=== PATIENT | female | born 1995 | race Caucasian/White ===

== ENCOUNTER 2022-10-10 13:59 | Inpatient (IN) | payer OTHER ==
[~2022-10-10] VITALS: Ht 172.7 cm; Wt 75.9 kg
[2022-10-15] VITALS (40 sets, daily range): BP systolic 97–142; BP diastolic 56–92; PULSE 63–136; TEMP 97.8–98.4
[2022-10-15] MEDS ORDERED: QUALITY CHOICE1 TA7 (07:51)
[2022-10-15 08:09] LABS: BASO % 0.3 % (0.0-2.0); EOS # 0.1 K/mm3 (0.0-0.7); EOS % 1.4 % (0.0-4.0); GRAN # 5.3 K/mm3 (1.4-6.5); GRAN % 57.4 % (42.2-75.2); HEMATOCRIT 38.4 % (37.0-47.0); HEMOGLOBIN 12.7 g/dl (12.5-16.0); LYMPH % 32.3 % (20.0-51.0); MEAN CELL VOLUME 87 fl (80.0-100.0); MEAN CORPUSCULAR HEMOGLOBIN 29 pg (27-31); MEAN CORPUSCULAR HGB CONC 33 g/dl (33.0-37.0); MEAN PLATELET VOLUME 11.3 fl (7.4-10.4); MONO # 0.8 K/mm3 (0.1-0.6); MONO % 8.2 % (1.7-9.3); PLATELET COUNT 238 K/mm3 (130-400); RED BLOOD COUNT 4.44 M/mm3 (4.10-5.30); REDCELL DISTRIBUTION WIDTH-CV 13.6 % (11.5-14.5)
[2022-10-15] MEDS ORDERED: MOTRIN 800800 MG/TAB PO (18:30)
[2022-10-16 01:00] VITALS: BP 110/68; PULSE 72; TEMP 98.1
[2022-10-16 06:37] LABS: HEMATOCRIT 31.1 % (37.0-47.0); HEMOGLOBIN 10.6 g/dl (12.5-16.0)
[2022-10-16 08:20] VITALS: BP 104/75; PULSE 68; TEMP 97.5
[2022-10-16 11:55] VITALS: BP 125/80; PULSE 92
[2022-10-16 20:50] VITALS: BP 113/80; PULSE 68; TEMP 97.7
[2022-10-17 08:00] VITALS: BP 121/80; PULSE 74; TEMP 98
== END 2022-10-17 09:40 | disposition home or self-care (01) | DRG 807 ==
LOC: OB 10-15 06:33 → LDR 10-15 06:33 → OB 10-15 09:23
PROVIDERS: ADMIT Obstetrics & Gynecology
PROC: 10E0XZZ Delivery of Products of Conception, External Approach (ICD-10-PCS; principal; 2022-10-15)
PROC: 0KQM0ZZ Repair Perineum Muscle, Open Approach (ICD-10-PCS; 2022-10-15)
PROC: 10907ZC Drainage of Amniotic Fluid, Therapeutic from Products of Conception, Via Natural or Artificial Opening (ICD-10-PCS; 2022-10-15)
PROC: 3E033VJ Introduction of Other Hormone into Peripheral Vein, Percutaneous Approach (ICD-10-PCS; 2022-10-15)
DX: O48.0 Post-term pregnancy (principal); Z37.0 Single live birth; O70.1 Second degree perineal laceration during delivery; O99.62 Diseases of the digestive system complicating childbirth; K42.9 Umbilical hernia without obstruction or gangrene; O99.344 Other mental disorders complicating childbirth; F41.9 Anxiety disorder, unspecified; Z3A.40 40 weeks gestation of pregnancy; Z79.82 Long term (current) use of aspirin
CPT/HCPCS: J2405; J2590; J2795; J7120

== ENCOUNTER 2024-07-01 09:29 | Outpatient (CLI) | payer OTHER ==
[~2024-07-01] VITALS: Ht 172.7 cm; Wt 76.8 kg
[~2024-07-01 09:29] MED LIST changes: -ASPIRIN 81M81 MG/TA2 PO; -LR 1,000 ML IV PRN
--- NOTE | 2024-07-01 09:35 | NUR ---
PATIENT AMBULATORY TO UNIT AND ORIENTED TO LABOR ROOM 3. PATIENT ASSISTED INTO A GOWN AND ASSISTED INTO BED. PATIENT REPORTS LEFT LOWER QUADRANT PAIN THAT IS MAKING IT DIFFICULT TO WALK, CONSTANT WHEN SHE IS MOVING AND IS COMING AND GOING. PATIENT DENIES LEAKING OF FLUID AND VAGINAL BLEEDING AND REPORTS GOOD MOVEMENT. EFM AND TOCO PLACED AND TRACING. ASSESSMENTS COMPLETED.
[2024-07-01 10:00] VITALS: BP 132/92; PULSE 86
--- NOTE | 2024-07-01 10:00 | NUR ---
IN PATIENTS ROOM, [facility] REPORT GIVEN. LABOR CHECK PLAN OF CARE, PATIENT AGREES.
[2024-07-01] MEDS ORDERED: ASPIRIN 81M81 MG/TA2 PO (10:04)
[2024-07-01 10:30] VITALS: BP 122/84; PULSE 67; TEMP 98.4
[2024-07-01] MEDS ORDERED: LR 1,000 ML IV PRN (11:00)
[2024-07-01 11:05] VITALS: BP 125/83; PULSE 80
--- NOTE | 2024-07-01 11:22 | NUR ---
DISCHARGE INSTRUCTIUONS REVIEWED WITH PAITENT AND SPOUSE, PATIENT VERBALIZES UNDERSTANDING. PATIENT AMBULATORY OFF UNIT WITH SPOUSE IN [facility] OCND[facility].
== END 2024-07-01 11:22 | disposition home or self-care (01) ==
LOC: LDRO 09:29
DX: O26.893 Other specified pregnancy related conditions, third trimester (principal); R10.32 Left lower quadrant pain; Z3A.34 34 weeks gestation of pregnancy

== ENCOUNTER → 2024-07-01 | Outpatient (CLI) | payer OTHER ==
[~2024-07-01] VITALS: Ht 167.6 cm; Wt 76.8 kg
[~2024-07-01] MED LIST: ASPIRIN 81M81 MG/TA2 PO; LR 1,000 ML IV PRN; MOTRIN 800800 MG/TAB PO; QUALITY CHOICE1 TA7
--- NOTE | 2024-07-01 18:50 | NUR ---
G4L2 at 34 weeks and 1 day arrives to unit with complaint of increasing LLQ pain and contraction pain. Pt was seen earlier today with the same complaint and patient states the pain has gotten worse. Pt appears to be uncomfortable but does not appear to be in labor. Pt states LLQ pain is pretty constant but sometimes gets worse with contractions. Pt reports good movement, denies vaginal bleeding or loss of fluid. Clean gown on. Pt oriented to room, call light within reach, bed in low and locked position. Admission assessment started. Vitals obtained. SVE 08/27/-2, membranes intact, vertex position.
[2024-07-01 19:00] VITALS: BP 118/73; PULSE 78; TEMP 98.3
--- NOTE | 2024-07-01 19:30 | NUR ---
18G IV started in left forearm with 1 attempt. Lactated ringers bolus infusing to gravity. Dr. Lehman at bedside to review plan of care with patient. Pt wants to think about her options and wait until fluids are done and cervical check is complete.
--- NOTE | 2024-07-01 19:45 | NUR ---
Seminary shows contractions every 2-4 minutes. Pt reports she does not feel all of them but occassionaly has a strong one that she has to focus and breath through.
--- NOTE | 2024-07-01 20:20 | NUR ---
Fluid bolus complete. Pt reports feeling a little bit better. Pt would like to be discharged home and will try benadryl and tylenol at home and continue to monitor pain.
[2024-07-01 20:26] LABS: COLLECTION METHOD CLEAN CATCH
[2024-07-01 20:30] LABS: PH 6.5 (5.0-8.5); URINE APPEARANCE CLEAR (CLEAR/HAZY); URINE BLOOD NEGATIVE (NEGATIVE); URINE COLOR YELLOW (YELLOW); URINE GLUCOSE NEGATIVE (NEGATIVE); URINE KETONE NEGATIVE (NEGATIVE); URINE NITRATE NEGATIVE (NEGATIVE); URINE PROTEIN(semi-quant) NEGATIVE (NEGATIVE); URINE UROBILINOGEN 0.2 E.U/dL (0.2-1.0)
--- NOTE | 2024-07-01 21:00 | NUR ---
IV removed from left forearm. Discharge instructions and return precautions reviewed with patient, verbalized understanding. Pt seen ambulating off unit with spouse.
== END ==
LOC: LDRO 18:43
PROVIDERS: Obstetrics & Gynecology
DX: O47.03 False labor before 37 completed weeks of gestation, third trimester (principal); Z3A.34 34 weeks gestation of pregnancy
CPT/HCPCS: J7120